=== PATIENT | male | born 1995 | race Caucasian/White ===

== ENCOUNTER 2020-07-10 18:53 | Emergency (ER) | payer OTHER ==
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
--- NOTE | 2020-07-11 10:46 | CT ---
Head CT Technique: Multiple axial sections through the brain were obtained. Intravenous contrast was not utilized. Comparison: No prior intracranial imaging is available. Findings Ventricles along with basal cisterns and sulci over the convexities are within normal limits for the patient's age. No abnormal parenchymal densities are seen. No evidence of intracranial hemorrhage. No midline shift or mass-effect is seen. Bone window settings were reviewed. Visualized mastoid sinuses and visualized paranasal sinuses showed nothing acute. No acute calvarial finding is appreciated. Impression: 1. Nothing acute is identified on noncontrast head CT study. Diagnostic code #1 This report was dictated in MDT I agree with preliminary report from [facility], finalized on 07/10/20, 8:26 PM Central Daylight Time
== END 2020-07-10 19:57 | disposition home or self-care (01) ==
LOC: JD.ED 18:53
DX: S06.0X9A Concussion with loss of consciousness of unspecified duration, initial encounter (principal); S80.01XA Contusion of right knee, initial encounter; S80.02XA Contusion of left knee, initial encounter; V69.9XXA Occupant (driver) (passenger) of heavy transport vehicle injured in unspecified traffic accident, initial encounter; Y92.411 Interstate highway as the place of occurrence of the external cause
CPT/HCPCS: 70450; 70450-26; 99282; 99284-25